=== PATIENT | female | born 1975 | race American Indian/Alaskan Native ===

== ENCOUNTER 2019-01-25 09:13 | Emergency (ER) | payer SELFPAY ==
[2019-01-25 09:18] VITALS: BP 140/97
[2019-01-25] MEDS ORDERED: PEPCID PO ONE (09:40)
[2019-01-25] MEDS ORDERED: DELTASONE PO ONE (09:40)
[2019-01-25] MEDS ORDERED: BENADRYL PO ONE (09:40)
--- NOTE | 2019-01-25 09:53 | Emergency Department Report ---
HPI - General Chief Complaint: Allergic Reaction Time Seen by Provider: 01/25/19 09:38 - HPI HPI: 43-year-old female presents complaining generalized itching just last night. Patient states it started on her left arm.Presents for the locations around her body. Patient is unsure if she has gotten bitten by an insect or could've been from her taken an antibiotic which she took one tablet last night she denies difficulty breathing or throat pain or swelling. Denies fever assess chills/nausea vomiting ED Past Medical Hx - Past Medical History Previous Medical History?: Yes Hx Hypertension: Yes - Surgical History Past Surgical History?: Yes Additional Surgical History: hysterectomy - Social History Smoking Status: Never Smoker Substance Use Type: None - Medications Home Medications: Home Medications Medication Instructions Recorded Confirmed Last Taken Type Amiodarone [Cordarone 200 MG TAB] 200 mg PO Q12HR #60 tablet 06/11/18 Unknown Rx Apixaban [Eliquis] 5 mg PO Q12HR #60 tablet 06/11/18 Unknown Rx Metoprolol Xl [Metoprolol 25 mg PO QDAY #30 tablet 06/11/18 Unknown Rx SUCCINATE ER TAB] oxyCODONE /ACETAMINOPHEN [Percocet 1 tab PO Q6H PRN #10 tablet 06/11/18 Unknown Rx 5/325 mg] Famotidine [Pepcid] 20 mg PO BID #10 tablet 01/25/19 Unknown Rx diphenhydrAMINE [Benadryl CAP] 25 mg PO QHS PRN #20 capsule 01/25/19 Unknown Rx ED Review of Systems ROS: Stated complaint: ALLERGIC REACTION Other details as noted in HPI Comment: All other systems reviewed and negative Physical Exam - Physical Exam Vital Signs: Vital Signs 01/25/19 09:16 Temperature 98.4 F Pulse Rate 76 Respiratory 16 Rate Blood Pressure 140/97 O2 Sat by Pulse 100 Oximetry Physical Exam: GENERAL: Alert and oriented x3, no apparent distress, Normal Gait, atraumatic. HEAD: Head is normocephalic and a-traumatic. NOSE: Nose symetrical, Nontender,Nares appeared normal. MOUTH:Mouth is well hydrated and without lesions. Tonsils nonerythematous or swollen, Uvula midline, Tongue not elevated. Mucous membranes are moist. Posterior pharynx clear, no exudate or lesions. Patent airways. NECK: Supple. Non edematous, No carotid bruits. No lymphadenopathy or thyromegaly. No C-spine tenderness LUNGS: Symetrical with respiration, No wheezing, no rales or crackles, CTAB. EXTREMITIES/MUSCULOSKELETAL: No cyanosis, clubbing, rash, lesions or edema. NEUROLOGIC: The patient is cooperative with no focal neurologic deficits. SKIN: Warm and dry, No lesions, No ulceration or induration present. ED Course Vital Signs 01/25/19 09:16 Temperature 98.4 F Pulse Rate 76 Respiratory 16 Rate Blood Pressure 140/97 O2 Sat by Pulse 100 Oximetry ED Medical Decision Making - Medical Decision Making 43-year-old female presents with cellulitis rash to arm. Patient received Pepcid Benadryl and prednisone in the ED. Patient on no acute history distress. Discussed the patient to avoid or discontinue the antibiotic which she too. Discussed the follow-up department Physician 3-5 days. Vital signs are normal Critical care attestation.: If time is entered above; I have spent that time in minutes in the direct care of this critically ill patient, excluding procedure time. ED Disposition Clinical Impression: Cellulitis of arm, left Disposition: DC-01 TO HOME OR SELFCARE Is pt being admited?: No Does the pt Need Aspirin: No Condition: Stable Instructions: Contact Dermatitis (ED), Cellulitis (ED) Additional Instructions: Make sure to follow up with the primary care physician as discussed. Take all your medications as you've been prescribed. If you have any worsening symptoms or develop new symptoms please return to ED immediately. Prescriptions: diphenhydrAMINE [Benadryl CAP] 25 mg PO QHS PRN #20 capsule PRN Reason: Itching Famotidine [Pepcid] 20 mg PO BID #10 tablet Referrals: PRIMARY CARE, [Primary Care Provider] - 3-5 Days [facility] [Outside] - 3-5 Days [facility] [Outside] - 3-5 Days Forms: Accompanied Note, Work/School Release Form(ED) Time of Disposition: 10:08
== END 2019-01-25 10:36 | disposition home or self-care (01) ==
LOC: ED 09:13
DX: L03.114 Cellulitis of left upper limb (principal); I10 Essential (primary) hypertension; Z88.0 Allergy status to penicillin; Z88.2 Allergy status to sulfonamides; Z88.8 Allergy status to other drugs, medicaments and biological substances; Z90.710 Acquired absence of both cervix and uterus; Z79.899 Other long term (current) drug therapy
CPT/HCPCS: 99282; J7512

== ENCOUNTER 2019-09-09 15:07 | Emergency (ER) | payer SELFPAY ==
[2019-09-09 15:16] VITALS: BP 155/87
--- NOTE | 2019-09-09 16:53 | Emergency Department Report ---
Chief Complaint: Laceration/Recheck/Suture Stated Complaint: STITCHES REMOVED Time Seen by Provider: 09/09/19 16:49 - HPI History of Present Illness: 43-year-old -[place] female presents to the emergency room for suture removal. Patient had sutures placed on 08/25/2019. Patient reports she is taking her antibiotics as prescribed. Patient reports that she saw some pus coming from the sutures. Patient states that is still very sore. She reports that it had a fever in her arm. Patient denies any nausea vomiting fever shortness of breath or chest pain. - Exam Vital Signs: Vital Signs 09/09/19 15:15 Temperature 98.6 F Pulse Rate 85 Respiratory 15 Rate Blood Pressure 155/87 [Left] O2 Sat by Pulse 100 Oximetry Physical Exam: Alert and oriented x3 no acute distress Right forearm palmar side sutures are in place with some dehiscence mild erythematous no edema tenderness and no purulent discharge appreciated. MSE screening note: Focused history and physical exam performed. Due to findings the following was ordered: 43-year-old -[place] female presents to the emergency room for suture removal. Patient had sutures placed on 08/25/2019. Patient reports she is taking her antibiotics as prescribed. Patient reports that she saw some pus coming from the sutures. Patient states that is still very sore. She reports that it had a fever in her arm. Patient denies any nausea vomiting fever shortness of breath or chest pain. I discussed with patient that we will wait 1 more week for her sutures to stay in and to follow-up in 1 week to have them removed. Discussed the patient to continue with [id number] pain medication as needed. Patient verbalized understanding ED Disposition for MSE Disposition: Z-07 MED SCREENING EXAM-LEFT Is pt being admited?: No Does the pt Need Aspirin: No Condition: Stable Additional Instructions: Please return back to the emergency room in 1 week for suture removal. Complete antibiotics as prescribed and your appointment on 08/25/2019 and take pain medication as needed. Referrals: PRIMARY CARE, [Primary Care Provider] - 3-5 Days
== END 2019-09-09 16:53 | disposition left against medical advice (07) ==
LOC: ED 15:07
DX: Z48.02 Encounter for removal of sutures (principal)

== ENCOUNTER 2019-09-18 21:19 | Emergency (ER) | payer SELFPAY ==
--- NOTE | 2019-09-18 21:54 | Emergency Department Report ---
<MUSA REVELES - Last Filed: 09/18/19 22:16> ED General Adult HPI - General Chief complaint: Laceration/Recheck/Suture Stated complaint: STITCHES RIGHT WRIST Time Seen by Provider: 09/18/19 21:28 Source: patient Mode of arrival: Ambulatory Limitations: No Limitations - History of Present Illness Initial comments: Patient is a 43-year-old female who presents the emergency room for suture removal to the right forearm. Patient was seen in the emergency department on 08/25/2019 and had stitches placed at that time. She followed back up approximately 2 weeks later but the stitches were not ready to be removed yet. She states that the arm still feels sore. She denies any fever or drainage. She has a past medical history of hypertension but states that she does not feel like she has it and does not take any medications. She has an allergy to penicillin and Bactrim. Patient states that she is still taking the antibiotic she was prescribed. She states that she has been taking the antibiotics incorrectly and only taking 2 pills once a day. She states that she now has vaginal itching and believes she has a yeast infection. She denies any dysuria or abdominal pain. Patient then reports to me that she needs to "talk with someone." I questioned patient what she meant by that and she states that she has been very depressed lately. I asked patient if she had suicidal ideations and she said yes that she wanted to kill herself. She states that she also wants to kill a male friend and her plan is to stab him. She has no suicidal plan. She has never tried to harm herself in the past. She has never been to a psychiatric facility before. She has never been on medications for depression. - Related Data Previous Rx's Medication Instructions Recorded Last Taken Type Amiodarone [Cordarone 200 MG TAB] 200 mg PO Q12HR #60 tablet 06/11/18 Unknown Rx Apixaban [Eliquis] 5 mg PO Q12HR #60 tablet 06/11/18 Unknown Rx Metoprolol Xl [Metoprolol 25 mg PO QDAY #30 tablet 06/11/18 Unknown Rx SUCCINATE ER TAB] oxyCODONE /ACETAMINOPHEN [Percocet 1 tab PO Q6H PRN #10 tablet 06/11/18 Unknown Rx 5/325 mg] Famotidine [Pepcid] 20 mg PO BID #10 tablet 01/25/19 Unknown Rx diphenhydrAMINE [Benadryl CAP] 25 mg PO QHS PRN #20 capsule 01/25/19 Unknown Rx Acetaminophen/Codeine [Tylenol 1 tab PO Q6H PRN #12 tab 08/25/19 Unknown Rx /Codeine # 3 tab] Clindamycin [Clindamycin CAP] 300 mg PO Q8HR #60 capsule 08/25/19 Unknown Rx Ibuprofen [Motrin] 800 mg PO Q8HR PRN #30 tablet 08/25/19 Unknown Rx Allergies Allergy/AdvReac Type Severity Reaction Status Date / Time Penicillins Allergy Unknown Verified 09/09/19 15:11 sulfamethoxazole Allergy Unknown Verified 09/09/19 15:11 [From Bactrim] trimethoprim [From Bactrim] Allergy Unknown Verified 09/09/19 15:11 ED Review of Systems Comment: All other systems reviewed and negative ED Past Medical Hx - Past Medical History Previous Medical History?: Yes Hx Hypertension: Yes - Surgical History Past Surgical History?: Yes Additional Surgical History: hysterectomy - Social History Smoking Status: Never Smoker Substance Use Type: None - Medications Home Medications: Home Medications Medication Instructions Recorded Confirmed Last Taken Type Amiodarone [Cordarone 200 MG TAB] 200 mg PO Q12HR #60 tablet 06/11/18 Unknown Rx Apixaban [Eliquis] 5 mg PO Q12HR #60 tablet 06/11/18 Unknown Rx Metoprolol Xl [Metoprolol 25 mg PO QDAY #30 tablet 06/11/18 Unknown Rx SUCCINATE ER TAB] oxyCODONE /ACETAMINOPHEN [Percocet 1 tab PO Q6H PRN #10 tablet 06/11/18 Unknown Rx 5/325 mg] Famotidine [Pepcid] 20 mg PO BID #10 tablet 01/25/19 Unknown Rx diphenhydrAMINE [Benadryl CAP] 25 mg PO QHS PRN #20 capsule 01/25/19 Unknown Rx Acetaminophen/Codeine [Tylenol 1 tab PO Q6H PRN #12 tab 08/25/19 Unknown Rx /Codeine # 3 tab] Clindamycin [Clindamycin CAP] 300 mg PO Q8HR #60 capsule 08/25/19 Unknown Rx Ibuprofen [Motrin] 800 mg PO Q8HR PRN #30 tablet 08/25/19 Unknown Rx ED Physical Exam - General Limitations: No Limitations General appearance: alert, in no apparent distress - Head Head exam: Present: atraumatic, normocephalic - Eye Eye exam: Present: normal appearance - ENT ENT exam: Present: mucous membranes moist - Respiratory Respiratory exam: Present: normal lung sounds bilaterally, respiratory distress. Absent: wheezes, rales, rhonchi, stridor, chest wall tenderness, accessory muscle use, decreased breath sounds, prolonged expiratory - Cardiovascular Cardiovascular Exam: Present: regular rate, normal rhythm, normal heart sounds. Absent: systolic murmur, diastolic murmur, rubs, gallop - Neurological Exam Neurological exam: Present: alert, oriented X3 - Psychiatric Psychiatric exam: Present: homicidal ideation, suicidal ideation - Skin Skin exam: Present: warm, dry, other (sutures present in the right anterior forearm, appears clean, dry, intact, no signs of infection, neurovascularly intact, no drainage, no signs of wound dehescience) ED Medical Decision Making - Medical Decision Making Patient is a 43-year-old female who presents the emergency room for suture removal to the right forearm. Patient was seen in the emergency department on 08/25/2019 and had stitches placed at that time. She followed back up approximately 2 weeks later but the stitches were not ready to be removed yet. She states that the arm still feels sore. She denies any fever or drainage. She has a past medical history of hypertension but states that she does not feel like she has it and does not take any medications. She has an allergy to pen icillin and Bactrim. Patient states that she is still taking the antibiotic she was prescribed. She states that she has been taking the antibiotics incorrectly and only taking 2 pills once a day. She states that she now has vaginal itching and believes she has a yeast infection. She denies any dysuria or abdominal pain. Patient then reports to me that she needs to "talk with someone." I questioned patient what she meant by that and she states that she has been very depressed lately. I asked patient if she had suicidal ideations and she said yes that she wanted to kill herself. She states that she also wants to kill a male friend and her plan is to stab him. She has no suicidal plan. She has never tried to harm herself in the past. She has never been to a psychiatric facility before. She has never been on medications for depression. vss All sutures removed without difficulty, no wound dehiscence, clean, dry, intact, wrapped by nursing staff [id number] placed due to SI without plan and HI with plan medical clearance labs and urine placed for psych clearance stat mental health consult placed ED Disposition Clinical Impression: Visit for suture removal, Suicidal ideations, Homicidal ideations, Depressed Disposition: - TO HOME OR SELFCARE Condition: Stable Instructions: Depression (ED), Suture Removal (ED) Additional Instructions: Take the medication as prescribed. Follow-up with your doctor or doctor/clinic provided. Return if symptoms worsen as indicated by your discharge instructions. MENTAL HEALTH FOLLOW UP [facility] Professional and Agency Contacts To help [facility](08/12) [place] Crisis Line: Suicide Prevention Line: Crisis Text Line: Text START to [phone] Emergency: 911 Outpatient [facility] Behavioral Health Resources: [facility]: [facility] [address] [place], [place] [address] [facility] - [address] [place] [address] Thursday thru Thursday - 8am - 5pm [facility] Address: [address] [place] [address] Thursday thru Thursday- 7am-2pm [facility] Address: [address] [place] [address] Thursday thru Thursday: 8:30AM-5PM Referrals: PRIMARY MD COLT [Primary Care Provider] - 3-5 Days [facility] [Provider Group] - 3-5 Days <GRISEL DIAZ - Last Filed: 09/18/19 23:04> ED Medical Decision Making - Lab Data Result diagrams: 09/18/19 21:58 09/18/19 21:58 Laboratory Results - last 24 hr 09/18/19 09/18/19 09/18/19 21:58 21:58 21:58 WBC 9.8 RBC 3.69 Hgb 11.9 Hct 35.3 MCV 96 MCH 32 MCHC 34 RDW 12.8 L Plt Count 268 Lymph % (Auto) 31.3 [place] % (Auto) 6.2 Eos % (Auto) 0.9 Baso % (Auto) 0.8 Lymph # 3.1 [place] # 0.6 Eos # 0.1 Baso # 0.1 Seg Neutrophils % 60.8 Seg Neutrophils # 6.0 Sodium 137 Potassium 3.5 L Chloride 100.4 Carbon Dioxide 23 Anion Gap 17 BUN 11 Creatinine 0.8 Estimated GFR > 60 BUN/Creatinine Ratio 14 Glucose 120 H Calcium 9.6 Total Bilirubin 0.30 AST 14 ALT 8 Alkaline Phosphatase 88 Total Protein 7.7 Albumin 4.5 Albumin/Globulin Ratio 1.4 HCG, Qual Salicylates < 0.3 L Acetaminophen Plasma/Serum Alcohol 09/18/19 09/18/19 09/18/19 21:58 21:58 21:58 WBC RBC Hgb Hct MCV MCH MCHC RDW Plt Count Lymph % (Auto) [place] % (Auto) Eos % (Auto) Baso % (Auto) Lymph # [place] # Eos # Baso # Seg Neutrophils % Seg Neutrophils # Sodium Potassium Chloride Carbon Dioxide Anion Gap BUN Creatinine Estimated GFR BUN/Creatinine Ratio Glucose Calcium Total Bilirubin AST ALT Alkaline Phosphatase Total Protein Albumin Albumin/Globulin Ratio HCG, Qual Negative Salicylates Acetaminophen < 5.0 L Plasma/Serum Alcohol < 0.01 - Medical Decision Making I evaluated Ms. Sarkar. She states that she has had years of depressed mood without treatment for depression or official diagnosis. She has thoughts of b ecause "she is going through it" regarding her relationship. She denies domestic violence. However she plans to stab her boyfriend. Due to suicidal ideation homicidal ideation with plan I do agree order from my colleague's for involuntary hold using 103 protocol. Awaiting treatment recommendations by our psychiatric team. Patient was cooperative. She understands the plan of care at this time. She is currently medically clear for psychiatric care. Serum studies obtained all within normal limits. <DOYLE MASSEY - Last Filed: 09/19/19 13:36> ED Review of Systems ROS: Stated complaint: STITCHES RIGHT WRIST Other details as noted in HPI ED Course Vital Signs 09/18/19 09/18/19 09/18/19 21:22 22:30 22:40 Temperature 98.4 F 98.4 F Pulse Rate 78 64 Respiratory 18 18 18 Rate Blood Pressure 139/84 Blood Pressure 157/93 [Left] O2 Sat by Pulse 99 100 100 Oximetry 09/19/19 02:00 Temperature 97.9 F Pulse Rate 84 Respiratory 16 Rate Blood Pressure Blood Pressure 137/91 [Left] O2 Sat by Pulse 100 Oximetry ED Medical Decision Making - Lab Data Result diagrams: 09/18/19 21:58 09/18/19 21:58 - Medical Decision Making Patient assessed by mental health. Apparently patient expressed wanting to stab her boyfriend due to recent break-up. This ex-boyfriend lives in [place] therefore she does not have access to him. She also does not have access to firearms. She has support of her son at home. Please refer to mental health note for further details. Patient denies suicidal homicidal ideation at this time and just stated she wanted to talk to somebody. Patient was deemed stable for outpatient follow-up by mental health evaluators and patient will be discharged with outpatient resources Critical care attestation.: If time is entered above; I have spent that time in minutes in the direct care of this critically ill patient, excluding procedure time. ED Disposition Is pt being admited?: No Does the pt Need Aspirin: No Time of Disposition: 13:36
[2019-09-18] MEDS ORDERED: FLUCONAZOLE 100 MG TAB PO ONE (22:02)
[2019-09-18 22:18] LABS: Basophils # (Auto) 0.1 K/mm3 (0.0-0.1); Basophils % (Auto) 0.8 % (0.0-1.8); Eosinophils # (Auto) 0.1 K/mm3 (0.0-0.4); Eosinophils % (Auto) 0.9 % (0.0-4.3); Hematocrit 35.3 % (30.3-42.9); Hemoglobin 11.9 gm/dl (10.1-14.3); Lymphocytes # (Auto) 3.1 K/mm3 (1.2-5.4); Lymphocytes % (Auto) 31.3 % (13.4-35.0); Mean Corpuscular HGB Conc 34 % (30-34); Mean Corpuscular Volume 96 fl (79-97); Monocytes # (Auto) 0.6 K/mm3 (0.0-0.8); Monocytes % (Auto) 6.2 % (0.0-7.3); Platelet Count 268 K/mm3 (140-440); Red Blood Count 3.69 M/mm3 (3.65-5.03); Red Cell Distribution Width 12.8 % (13.2-15.2)
[2019-09-18 22:41] LABS: Alanine Aminotransferase 8 units/L (7-56); Albumin 4.5 g/dL (3.9-5); BUN/Creatinine Ratio 14; Blood Urea Nitrogen 11 mg/dL (7-17); Calcium 9.6 mg/dL (8.4-10.2); Hemolysis Index 4
[2019-09-19 02:23] VITALS: BP 137/91
[2019-09-19 07:34] LABS: Bacteria,Urine 1+ /HPF (Negative); Bilirubin,Urine NEG (Negative); Blood,Urine NEG (Negative); Color,Urine Yellow (Yellow); Mucus,Urine 2+ /HPF; Protein,Urine <15 mg/dL mg/dL (Negative); Urobilinogen,Urine < 2.0 mg/dL (<2.0)
[2019-09-19 07:48] LABS: Amphetamine Screen,Urine PRESUMPTIVE NEGATIVE; Benzodiazepines Screen,Urine PRESUMPTIVE NEGATIVE; Cannabinoid Screen,Urine PRESUMPTIVE NEGATIVE; Cocaine Screen,Urine PRESUMPTIVE NEGATIVE; Methadone Screen,Urine PRESUMPTIVE NEGATIVE; Opiate Screen,Urine PRESUMPTIVE NEGATIVE
[2019-09-19] MEDS ORDERED: FLUCONAZOLE 100 MG TAB PO ONE (11:00)
== END 2019-09-19 13:50 | disposition home or self-care (01) ==
LOC: ED 21:19
DX: F32.89 Other specified depressive episodes (principal); I10 Essential (primary) hypertension; Z90.710 Acquired absence of both cervix and uterus; Z79.899 Other long term (current) drug therapy; Z88.2 Allergy status to sulfonamides; Z88.0 Allergy status to penicillin
CPT/HCPCS: 36415; 80053; 80307; 80320; 81001; 84703; 85025; 87086; G0480

== ENCOUNTER 2020-01-22 16:32 | Emergency (ER) | payer SELFPAY ==
[2020-01-22 16:45] VITALS: BP 147/92
[2020-01-22] MEDS ORDERED: ACETAMINOPHEN 500 MG TAB PO ONE (20:37)
[2020-01-22] MEDS ORDERED: predniSONE 20 MG TAB PO ONE (20:37)
[2020-01-22] MEDS ORDERED: IBUPROFEN 600 MG TAB PO ONE (20:37)
--- NOTE | 2020-01-22 21:21 | Emergency Department Report ---
- General Chief Complaint: Upper Respiratory Infection Stated Complaint: CP/CONGESTED/HEADACHE/BODYACHE Source: patient Mode of arrival: Ambulatory Limitations: No Limitations - History of Present Illness Initial Comments: Patient is a 44-year-old -[place] female with past medical history of hypertension who presents to the ED with complaint of acute onset persistent nasal and sinus congestion, frontal sinus pressure and headache, mild sore throat and mild dry cough with pleuritic chest pain for the last 2 days. Patient also complains of diffuse body aches and pains with chills. Patient den ies dizziness, syncope, hemoptysis, shortness of breath, abdominal pain, nausea, vomiting, syncope, change in vision, neck pain, back pain, dysuria, urinary frequency and urgency or vaginal bleeding or diarrhea. MD Complaint: cough, rhinorrhea, nasal congestion, sinus pain, other (diffuse body aches and pains; headache) -: Sudden, days(s) (2) Severity: severe Severity scale (0 -10): 7 Quality: sharp, aching Consistency: constant Improves With: nothing Worsens With: nothing Associated Symptoms: denies other symptoms, chills, myalgias, headache, rhinorrhea, nasal congestion, sore throat, cough. denies: fever, diaphoresis, stiff neck, chest pain, shortness of breath, abdominal pain, nausea, vomiting, diarrhea, dysuria, rash, confusion, right sweats, weight loss, epistaxis, hoarseness, ear pain Treatments Prior to Arrival: none - Related Data Previous Rx's Medication Instructions Recorded Last Taken Type Amiodarone [Cordarone 200 MG TAB] 200 mg PO Q12HR #60 tablet 06/11/18 Unknown Rx Apixaban [Eliquis] 5 mg PO Q12HR #60 tablet 06/11/18 Unknown Rx Metoprolol Xl [Metoprolol 25 mg PO QDAY #30 tablet 06/11/18 Unknown Rx SUCCINATE ER TAB] oxyCODONE /ACETAMINOPHEN [Percocet 1 tab PO Q6H PRN #10 tablet 06/11/18 Unknown Rx 5/325 mg] Famotidine [Pepcid] 20 mg PO BID #10 tablet 01/25/19 Unknown Rx diphenhydrAMINE [Benadryl CAP] 25 mg PO QHS PRN #20 capsule 01/25/19 Unknown Rx Acetaminophen/Codeine [Tylenol 1 tab PO Q6H PRN #12 tab 08/25/19 Unknown Rx /Codeine # 3 tab] Clindamycin [Clindamycin CAP] 300 mg PO Q8HR #60 capsule 08/25/19 Unknown Rx Azithromycin [Zithromax Z-GRABIEL] 250 mg PO DAILY #6 tablet 01/22/20 Unknown Rx Benzonatate [Tessalon Perles] 100 mg PO Q8HR #30 capsule 01/22/20 Unknown Rx Cetirizine HCl [Zyrtec 10mg tab] 10 mg PO DAILY #30 tablet 01/22/20 Unknown Rx Ibuprofen [Motrin 800 MG tab] 800 mg PO Q8HR PRN #30 tablet 01/22/20 Unknown Rx methylPREDNISolone [Medrol 4MG 4 mg PO DAILY #21 tab.ds.pk 01/22/20 Unknown Rx DOSEPAK (21 tabs)] Allergies Allergy/AdvReac Type Severity Reaction Status Date / Time Penicillins Allergy Unknown Verified 09/09/19 15:11 sulfamethoxazole Allergy Unknown Verified 09/09/19 15:11 [From Bactrim] trimethoprim [From Bactrim] Allergy Unknown Verified 09/09/19 15:11 ED Review of Systems ROS: Stated complaint: CP/CONGESTED/HEADACHE/BODYACHE Other details as noted in HPI Constitutional: denies: chills, fever Eyes: denies: eye pain, eye discharge, vision change ENT: throat pain, congestion, other. denies: ear pain Respiratory: cough (Frontal sinus pressure and headache). denies: shortness of breath, wheezing Cardiovascular: chest pain (Pleuritic chest pain). denies: palpitations Endocrine: no symptoms reported Gastrointestinal: denies: abdominal pain, nausea, diarrhea Genitourinary: denies: urgency, dysuria, discharge Musculoskeletal: arthralgia, myalgia. denies: back pain, joint swelling Skin: denies: rash, lesions Neurological: headache (Frontal headache). denies: weakness, paresthesias Psychiatric: denies: anxiety, depression Hematological/Lymphatic: denies: easy bleeding, easy bruising ED Past Medical Hx - Past Medical History Previous Medical History?: Yes Hx Hypertension: Yes - Surgical History Additional Surgical History: hysterectomy - Social History Smoking Status: Never Smoker Substance Use Type: None - Medications Home Medications: Home Medications Medication Instructions Recorded Confirmed Last Taken Type Amiodarone [Cordarone 200 MG TAB] 200 mg PO Q12HR #60 tablet 06/11/18 Unknown Rx Apixaban [Eliquis] 5 mg PO Q12HR #60 tablet 06/11/18 Unknown Rx Metoprolol Xl [Metoprolol 25 mg PO QDAY #30 tablet 06/11/18 Unknown Rx SUCCINATE ER TAB] oxyCODONE /ACETAMINOPHEN [Percocet 1 tab PO Q6H PRN #10 tablet 06/11/18 Unknown Rx 5/325 mg] Famotidine [Pepcid] 20 mg PO BID #10 tablet 01/25/19 Unknown Rx diphenhydrAMINE [Benadryl CAP] 25 mg PO QHS PRN #20 capsule 01/25/19 Unknown Rx Acetaminophen/Codeine [Tylenol 1 tab PO Q6H PRN #12 tab 08/25/19 Unknown Rx /Codeine # 3 tab] Clindamycin [Clindamycin CAP] 300 mg PO Q8HR #60 capsule 08/25/19 Unknown Rx Azithromycin [Zithromax Z-GRABIEL] 250 mg PO DAILY #6 tablet 01/22/20 Unknown Rx Benzonatate [Tessalon Perles] 100 mg PO Q8HR #30 capsule 01/22/20 Unknown Rx Cetirizine HCl [Zyrtec 10mg tab] 10 mg PO DAILY #30 tablet 01/22/20 Unknown Rx Ibuprofen [Motrin 800 MG tab] 800 mg PO Q8HR PRN #30 tablet 01/22/20 Unknown Rx methylPREDNISolone [Medrol 4MG 4 mg PO DAILY #21 tab.ds.pk 01/22/20 Unknown Rx DOSEPAK (21 tabs)] ED Physical Exam - General Limitations: No Limitations General appearance: alert, in no apparent distress - Head Head exam: Present: atraumatic, normocephalic, normal inspection - Eye Eye exam: Present: normal appearance, PERRL, EOMI Pupils: Present: normal accommodation - ENT ENT exam: Present: mucous membranes moist, TM's normal bilaterally, normal external ear exam, other (Palpable frontal sinus tenderness; grossly congested nasal passages; mild erythematous oropharynx) - Neck Neck exam: Present: normal inspection, full ROM - Respiratory Respiratory exam: Present: normal lung sounds bilaterally. Absent: respiratory distress, wheezes, rales, rhonchi, chest wall tenderness, accessory muscle use, decreased breath sounds - Cardiovascular Cardiovascular Exam: Present: regular rate, normal rhythm, normal heart sounds. Absent: systolic murmur, diastolic murmur, rubs, gallop - GI/Abdominal GI/Abdominal exam: Present: soft, normal bowel sounds. Absent: tenderness, rebound, hyperactive bowel sounds - Extremities Exam Extremities exam: Present: normal inspection, full ROM, normal capillary refill - Back Exam Back exam: Present: normal inspection, full ROM. Absent: tenderness, CVA tenderness (R), CVA tenderness (L), muscle spasm, paraspinal tenderness, vertebral tenderness - Neurological Exam Neurological exam: Present: alert, oriented X3, CN II-XII intact, normal gait, reflexes normal - Psychiatric Psychiatric exam: Present: normal affect, normal mood - Skin Skin exam: Present: warm, dry, intact, normal color. Absent: rash ED Course Vital Signs 01/22/20 16:42 Temperature 97.6 F Pulse Rate 81 Respiratory 20 Rate Blood Pressure 147/92 O2 Sat by Pulse 100 Oximetry ED Medical Decision Making - Medical Decision Making This is a 44-year-old -[place] female with past medical history of hypertension who presents to the ED with complaint of acute onset persistent nasal and sinus congestion, frontal sinus pressure and headache, mild sore throat and mild dry cough with pleuritic chest pain for the last 2 days. Patient also complains of diffuse body aches and pains with chills. In the ED, patient is alert and oriented x3 and is not in any distress. Patient was treated for pain in the ED. Based on the physical exam findings, the patient was discharged home on medications for acute sinusitis and bronchitis. Patient was discharged home and advised to follow-up with her primary care physician in 5 to 7 days for reevaluation or return to the ED immediately if symptoms get worse. - Differential Diagnosis Sinusitis; URI; bronchitis; pneumonia; pharyngitis Critical care attestation.: If time is entered above; I have spent that time in minutes in the direct care of this critically ill patient, excluding procedure time. ED Disposition Clinical Impression: Acute non-recurrent frontal sinusitis, Acute upper respiratory infection Acute bronchitis Qualifiers: Bronchitis organism: other organism Qualified Code(s): J20.8 - Acute bronchitis due to other specified organisms Disposition: DC-01 TO HOME OR SELFCARE Is pt being admited?: No Does the pt Need Aspirin: No Condition: Stable Instructions: Acute Bronchitis (ED), Acute Bacterial Rhinosinusitis (ED), Upper Respiratory Infection (ED) Additional Instructions: Take medication with food, drink plenty fluids and follow-up with your primary care physician 7 to 10 days for reevaluation. Return to the ED immediately if symptoms get worse. Prescriptions: methylPREDNISolone [Medrol 4MG DOSEPAK (21 tabs)] 4 mg PO DAILY #21 tab.ds.pk Ibuprofen [Motrin 800 MG tab] 800 mg PO Q8HR PRN #30 tablet PRN Reason: Pain , Severe (7-10) Benzonatate [Tessalon Perles] 100 mg PO Q8HR #30 capsule Azithromycin [Zithromax Z-GRABIEL] 250 mg PO DAILY #6 tablet Cetirizine HCl [Zyrtec 10mg tab] 10 mg PO DAILY #30 tablet Referrals: [facility] [Provider Group] - 3-5 Days Forms: Work/School Release Form(ED) Time of Disposition: 21:21 Print Language: LEBANESE
== END 2020-01-22 21:52 | disposition home or self-care (01) ==
LOC: ED 16:32
DX: J20.8 Acute bronchitis due to other specified organisms (principal); J01.10 Acute frontal sinusitis, unspecified; J06.9 Acute upper respiratory infection, unspecified; I10 Essential (primary) hypertension; Z90.710 Acquired absence of both cervix and uterus; Z79.899 Other long term (current) drug therapy; Z88.0 Allergy status to penicillin; Z88.2 Allergy status to sulfonamides
CPT/HCPCS: 99282; J7512